=== PATIENT | female | born 1985 | race Caucasian/White ===

== ENCOUNTER 2020-11-21 03:01 | Emergency (ER) | payer OTHER ==
[~2020-11-21] VITALS: Ht 180.3 cm; Wt 72.6 kg
[~2020-11-21 03:01] MED LIST: HYDACE5 PO; IBUP600 PO; ONDA4ODT MM; PROACE100 PO; SERT25
[2020-11-21 03:42] LABS: BASOPHILS ABSOLUTE AUTO 0.04 K/mm3 (0.00-0.23); BASOPHILS PERCENT AUTO 1 % (0-2); EOSINOPHILS ABSOLUTE AUTO 0.22 K/mm3 (0.00-0.68); EOSINOPHILS PERCENT AUTO 4 % (0-6); Hematocrit 36.6 % (33.0-51.0); Hemoglobin 11.4 g/dL (11.5-16.0); IMMATURE GRAN ABSOLUTE AUTO 0.01 K/mm3 (0.00-0.10); IMMATURE GRAN PERCENT AUTO 0 % (0-1); LYMPHOCYTES ABSOLUTE AUTO 3.15 K/mm3 (0.84-5.20); LYMPHOCYTES PERCENT AUTO 53 % (21-46); MONOCYTES ABSOLUTE AUTO 0.49 K/mm3 (0.16-1.47); MONOCYTES PERCENT AUTO 8 % (4-13); Mean Corpuscular HGB 27.6 pg (26.0-34.0); Mean Corpuscular HGB Conc 31.1 g/dL (31.5-36.5); Mean Corpuscular Volume 89 fL (80-100); Mean Platelet Volume 8.6 fL (9.1-12.4); NEUTROPHILS ABSOLUTE AUTO 2.03 K/mm3 (1.96-9.15); NEUTROPHILS PERCENT AUTO 34 % (41-73); Platelet Count 319 K/mm3 (150-400); RDW Coefficient Variation 13.2 % (11.7-14.2); RDW Standard Deviation 43.6 fL (35.1-46.3); Red Blood Cell Count 4.13 M/mm3 (3.80-5.20); White Blood Cell Count 5.94 K/mm3 (4.00-11.30)
[2020-11-21 03:48] LABS: Source, Urine Clean Catch
[2020-11-21 03:51] LABS: Bilirubin, Urine Neg (Neg); Blood, Urine Neg (Neg); Glucose Qualitative, Urine Neg (Neg); Ketones, Urine Neg (Neg); Leukocyte Esterase, Urine 2+ (Neg); Nitrite, Urine Neg (Neg); Protein, Urine Neg (Neg); Specific Gravity, Urine 1.015 (1.003-1.022); Urobilinogen, Urine NORM (Normal)
[2020-11-21 03:54] LABS: Appearance, Urine Clear (Clear); Color, Urine Pale Yellow (P-Yellow)
[2020-11-21 04:02] LABS: Alanine Aminotransfer (ALT/SGP 17 U/L (12-78); Albumin, Blood 3.8 g/dL (3.4-5.0); Albumin/Globulin Ratio 1.1 (0.8-1.8); Alk Phos 69 U/L (50-136); Anion Gap 6 mmol/L (6-16); Aspartate Aminotrans (AST/SGOT 14 U/L (12-37); Bilirubin, Total 0.3 mg/dL (0.1-1.0); Blood Urea Nitrogen 17 mg/dL (8-24); Bun/Creatinine Ratio 20.1 (12.0-20.0); CO2, Blood 27 mmol/L (21-32); Calcium, Blood 8.9 mg/dL (8.5-10.1); Chloride, Blood 107 mmol/L (98-108); Creatinine, Blood 0.85 mg/dL (0.40-1.00); Ethanol (Alcohol), Blood, Med <3 mg/dL; Globulin, Blood 3.5 g/dL (2.2-4.0); Glomerular Filtration Rate >60 (60-); Glucose, Blood 101 mg/dL (70-99); Potassium, Blood 3.7 mmol/L (3.5-5.5); Salicylate <1.7 mg/dL (2.8-20.0); Sodium, Blood 140 mmol/L (136-145); Total Protein, Blood 7.3 g/dL (6.4-8.2); Troponin I <0.015 ng/mL (0.000-0.040)
[2020-11-21 04:04] LABS: Acetaminophen, Random <2.0 ug/mL (10.0-30.0)
[2020-11-21 04:07] LABS: U Amphetamine Screen Not Detected; U Barbituate Screen Not Detected; U Benzodiazapine Screen Not Detected; U Buprenorphine Screen Not Detected; U Cannabinoids Screen Not Detected; U Cocaine Screen Not Detected; U Methadone Screen Not Detected; U Methamphetamine Screen Not Detected; U Opiates Screen DETECTED; U Oxycodone Screen Not Detected; U Phencyclidine Screen Not Detected; U Propoxyphene Screen Not Detected
[2020-11-21 04:09] LABS: Bacteria Few /hpf; Red Blood Cells, Urine Not Seen /hpf (0-2); Squamous Epithelial Cells Rare /hpf (Few)
== END 2020-11-21 04:32 | disposition home or self-care (01) ==
LOC: ER 03:01
PROVIDERS: Emergency Medicine
DX: R00.2 Palpitations (principal)
CPT/HCPCS: 36415; 80053; 81001; 81025; 84484; 85025; 87086; 93005; 93010; 99285-25; G0480

== ENCOUNTER 2020-12-29 08:41 | Day surgery (SDC) | payer OTHER ==
[~2020-12-29] VITALS: Ht 179 cm; Wt 73.6 kg
--- NOTE | 2020-12-29 09:43 | NUR ---
History, Chart, Medications and Allergies reviewed before start of procedure.Lungs clear T/O to Auscultation. Patient confirms NPO status and agrees with scheduled surgery. Pre-Op teaching done. Pt verbalizes understanding. Patient reports completing Chlorhexadine shower X2 prior to admission to hospital.
--- NOTE | 2020-12-29 10:59 | NUR ---
12/29/20 1059 Saul Grace PIERRE CATH PLACED INTRA-OP PER DR. PETTIT.
--- NOTE | 2020-12-29 13:36 | NUR ---
PT ARRIVED TO THE ROOM AT APPROXIMATELY 1320. PT ALERT AND ORIENTED. PT REPORTS HER PAIN IS IMPROVING BUT REPORTS SOME GAS PAINS. VSS. WILL CONTINUE TO MONITOR.
--- NOTE | 2020-12-29 17:00 | NUR ---
PIERRE CATHETER REMOVED AT 1615. PT TOLERATED WELL.
[2020-12-29] MEDS ORDERED: DOCU100 PO (17:39)
[2020-12-29] MEDS ORDERED: HYDR1TAB94 PO (17:40)
[2020-12-29] MEDS ORDERED: IBUP800 PO (17:41)
--- NOTE | 2020-12-29 18:24 | NUR ---
DR. PETTIT NOTIFIED THAT PT HAS VOIDED. SHE WAS NOTIEFIED THAT PT HAS HAD SOME BURNING WITH URINATION BUT WAS STRAINING TO VOID. PT WAS EDUCATED TO AVOID STRAINING TO VOID. ATTEMPTED TO OBTAIN POST VOID RESIDUAL UNABLE TO OBTAIN BLADDER SCANNER WAS UNABLE TO LOCATE BLADDER, DR. PETTIT NOTIFIED. PLAN TO CONTINUE WITH DISCHARGE AT THIS TIME.
--- NOTE | 2020-12-29 19:28 | NUR ---
SHIFT SUMMARY PT HAS BEEN ABLE TO TOLERATE PO, VOIDING, AND PAIN MANAGED. PT IS WAITING FOR HER TO TAKE HER HOME. DISCHARGE COMPLETE. REPORT GIVEN TO ANNE PEÑA.
--- NOTE | 2020-12-29 20:15 | NUR ---
DISCHARGE NOTE RECEIVED HAND OFF FROM Kasia MCCALL RN USING SBAR. SHIFT ASSESSMENT COMPLETED. SITTING ON THE EDGE OF THE BED WITH PERSONAL CLOTHING ON AND ALL OTHER BELONGINGS GATHERED TO TAKE WITH HER WHEN HER ARRIVES. PIV REMOVED WITH CATH TIP INTACT AFTER FLUSHING WITH 10ML NS, TOLERATED WELL. GIVEN DISCHARGE PACKET, VERBALIZES UNDERSTANDING. DENIES FURTHER NEEDS OR WANTS AT THIS TIME. AT BEDSIDE, DENIES NEED FOR WHEELCHAIR. WAKED OUT WITH HIM AT HER SIDE.
== END 2020-12-29 20:15 | disposition home or self-care (01) ==
LOC: ORSCMMR 08:41 → ORD 10:00 → SURS 13:24 → ORSCMMR 20:15
PROVIDERS: Obstetrics & Gynecology
PROC: 0UT7FZZ Resection of Bilateral Fallopian Tubes, Via Natural or Artificial Opening With Percutaneous Endoscopic Assistance (ICD-10-PCS; principal; 2020-12-29 10:00)
PROC: 0UT9FZZ Resection of Uterus, Via Natural or Artificial Opening With Percutaneous Endoscopic Assistance (ICD-10-PCS; principal; 2020-12-29 10:00)
DX: N92.0 Excessive and frequent menstruation with regular cycle (principal); N80.0 Endometriosis of uterus; K66.0 Peritoneal adhesions (postprocedural) (postinfection); Z79.82 Long term (current) use of aspirin
CPT/HCPCS: 88307; A9270; J0171; J1100; J1170; J1885; J2250; J2405; J2704; J2710; J3010; J7120

== ENCOUNTER 2023-01-25 13:10 | Emergency (ER) | payer BC, OTHER ==
[~2023-01-25] VITALS: Ht 177.8 cm; Wt 72.6 kg
[~2023-01-25 13:10] MED LIST changes: +CYCL10 PO; +DOCU100 PO; +HYDR1TAB94 PO; +IBUP800 PO; +Neurontin 300300 MG PO
[2023-01-25 14:00] LABS: BASOPHILS ABSOLUTE AUTO 0.03 K/mm3 (0.00-0.23); BASOPHILS PERCENT AUTO 1 % (0-2); EOSINOPHILS PERCENT AUTO 2 % (0-6); Hematocrit 41.6 % (33.0-51.0); IMMATURE GRAN ABSOLUTE AUTO 0.01 K/mm3 (0.00-0.10); IMMATURE GRAN PERCENT AUTO 0 % (0-1); LYMPHOCYTES PERCENT AUTO 45 % (21-46); MONOCYTES ABSOLUTE AUTO 0.26 K/mm3 (0.16-1.47); MONOCYTES PERCENT AUTO 6 % (4-13); Mean Corpuscular HGB 32.3 pg (26.0-34.0); Mean Corpuscular HGB Conc 36.1 g/dL (31.5-36.5); Mean Corpuscular Volume 90 fL (80-100); Mean Platelet Volume 8.8 fL (9.1-12.4); NEUTROPHILS ABSOLUTE AUTO 2.05 K/mm3 (1.96-9.15); NEUTROPHILS PERCENT AUTO 46 % (41-73); Platelet Count 289 K/mm3 (150-400); RDW Coefficient Variation 11.7 % (11.7-14.2); RDW Standard Deviation 38.3 fL (35.1-46.3); Red Blood Cell Count 4.65 M/mm3 (3.80-5.20); White Blood Cell Count 4.45 K/mm3 (4.00-11.30)
[2023-01-25 14:27] LABS: Albumin, Blood 4.1 g/dL (3.4-5.0); Bilirubin, Total 0.2 mg/dL (0.1-1.0); Bun/Creatinine Ratio 11.8 (12.0-20.0); Calcium, Blood 9.1 mg/dL (8.5-10.1); Creatinine, Blood 0.68 mg/dL (0.40-1.00); Potassium, Blood 3.9 mmol/L (3.5-5.5); Total Protein, Blood 8.1 g/dL (6.4-8.2)
[2023-01-25 15:22] LABS: Source, Urine Clean Catch
[2023-01-25 15:32] LABS: Appearance, Urine Clear (Clear); Bilirubin, Urine Neg (Neg); Blood, Urine Neg (Neg); Glucose Qualitative, Urine Neg (Neg); Ketones, Urine Neg (Neg); Leukocyte Esterase, Urine Neg (Neg); Nitrite, Urine Neg (Neg); Protein, Urine Neg (Neg); Specific Gravity, Urine 1.015 (1.003-1.022); Urobilinogen, Urine NORM (Normal)
[2023-01-25 15:59] LABS: Color, Urine Pale Yellow (P-Yellow)
[2023-01-25] MEDS ORDERED: ONDA4ODT MM (17:25)
== END 2023-01-25 17:47 | disposition home or self-care (01) ==
LOC: ER 13:10
PROVIDERS: Physician Assistant
DX: R10.11 Right upper quadrant pain (principal); R11.2 Nausea with vomiting, unspecified; Z91.010 Allergy to peanuts
CPT/HCPCS: 36415; 74177; 76705; 80053; 81003; 83690; 85025; 93005; 93010; 96361; 96374-59; 96375; 99284-25; J1170; J1790; J1885; J2405; J7030; Q9967

== ENCOUNTER → 2025-08-16 | Outpatient (CLI) | payer OTHER | LOC: LAB 14:33 → LAB SHORT 14:33 | DX: N39.0 Urinary tract infection, site not specified (principal); R31.9 Hematuria, unspecified | CPT/HCPCS: 87077; 87086; 87186 ==